=== PATIENT | male | born 1970 | race African-American/Black ===

== ENCOUNTER → 2017-06-22 | Outpatient (CLI) | payer OTHER | LOC: BICULT 12:49 | PROVIDERS: ATTEND Family Medicine | DX: H34.219 Partial retinal artery occlusion, unspecified eye (principal) | CPT/HCPCS: 93880 ==

== ENCOUNTER 2018-01-11 09:42 | Outpatient (CLI) | payer OTHER ==
--- NOTE | 2018-01-11 10:25 | ULT ---
RIGHT UPPER QUADRANT ULTRASOUND: Date: 01/11/18 HISTORY: Right upper quadrant abdominal pain. TECHNIQUE: Multiplanar Borrero scale and color Doppler images were obtained in a right upper quadrant abdominal ult rasound. FINDINGS: The liver demonstrates increased echogenicity without focal lesions or intrahepatic ductal dilatation . The gallbladder is normal without stones, sludge, gallbladder wall thickening, or pericholecystic f luid. The common bile duct is normal, measuring 4.0 mm. The pancreas could not be visualized. The rig ht kidney is normal in echogenicity without hydronephrosis or calculus and measures 11.2 cm in length . IMPRESSION: Fatty liver. POS: DAINA
== END 2018-01-11 09:43 | disposition home or self-care (01) ==
LOC: SCSULT 09:42
PROVIDERS: ATTEND Family Medicine
DX: R10.11 Right upper quadrant pain (principal); K76.0 Fatty (change of) liver, not elsewhere classified
CPT/HCPCS: 76705

== ENCOUNTER 2018-09-17 23:12 | Emergency (ER) | payer OTHER ==
[2018-09-17] MEDS ORDERED: Silver Nitrate Application 1 EACH ONE (23:29)
[2018-09-17] MEDS ORDERED: Adacel (T-DAP) 0.5 ML SYRINGE ONE (23:36)
== END 2018-09-18 00:10 | disposition home or self-care (01) ==
LOC: ERS 23:12
DX: S61.031A Puncture wound without foreign body of right thumb without damage to nail, initial encounter (principal); E11.9 Type 2 diabetes mellitus without complications; E78.5 Hyperlipidemia, unspecified; F31.9 Bipolar disorder, unspecified; F41.9 Anxiety disorder, unspecified; J45.909 Unspecified asthma, uncomplicated; I10 Essential (primary) hypertension; Z79.84 Long term (current) use of oral hypoglycemic drugs; Z79.899 Other long term (current) drug therapy; W22.8XXA Striking against or struck by other objects, initial encounter
CPT/HCPCS: 90471; 90715

== ENCOUNTER 2018-11-05 19:16 | Emergency (ER) | payer OTHER ==
[2018-11-05] MEDS ORDERED: Silver Nitrate Application 1 EACH ONE ×3 (19:55→20:10)
== END 2018-11-05 20:42 | disposition home or self-care (01) ==
LOC: ERS 19:16
DX: L98.0 Pyogenic granuloma (principal); E78.5 Hyperlipidemia, unspecified; J45.909 Unspecified asthma, uncomplicated; E11.9 Type 2 diabetes mellitus without complications; I10 Essential (primary) hypertension; Z79.899 Other long term (current) drug therapy; Z79.84 Long term (current) use of oral hypoglycemic drugs; Z79.51 Long term (current) use of inhaled steroids
CPT/HCPCS: 17250

== ENCOUNTER 2018-11-29 14:58 | Outpatient (CLI) | payer OTHER ==
[2018-11-29 15:58] LABS: #Basophils 0.1 thou/uL (0.0-0.2); #Eosinphils 0.5 thou/uL (0.0-0.7); #Lymphocytes 3.1 thou/uL (1.20-3.40); #Monocytes 0.5 thou/uL (0.11-0.59); #Neutrophils 3.6 thou/uL (1.40-6.50); %Basophils 0.9 % (0.0-1.0); %Eosinophils 6.5 % (0.0-10.0); %Lymphocytes 39.6 % (21.0-51.0); %Monocytes 6.7 % (0.0-10.0); %Neutrophils 46.4 % (42.0-75.0); Hemoglobin 14.2 g/dL (14.0-18.0); Mean Corpuscular HGB CONC 33.4 g/dL (32.0-36.0); Mean Corpuscular Hemoglobin 30.2 pg (27.0-31.0); Mean Corpuscular Volume 90.5 fL (78.0-98.0); Mean Platelet Volume 8.9 fL (7.4-10.4); Platelet Count 178 thou/uL (130-400); RBC Distribution Width 12.6 % (11.5-14.5); Red Blood Cell (RBC) Count 4.69 mill/uL (4.70-6.10); White Blood Cell (WBC) Count 7.8 thou/uL (4.8-10.8)
[2018-11-29 16:09] LABS: Bacteria/HPF None Seen HPF (None Seen); Bilirubin Negative (Negative); Blood, Urine Negative (Negative); Clarity Clear (Clear); Glucose, Urine (Dipstick) Greater than 1000 mg/dL (Negative); Leukocyte Negative Leu/uL (Negative); Nitrite Negative (Negative); Protein, Urine (Dipstick) 10 mg/dL (Neg-Trace); RBC/HPF 0-3 HPF (0-3); Squamous Epithelial 0-3 HPF (0-3); WBC/HPF 0-3 HPF (0-3)
[2018-11-29 16:17] LABS: Anion Gap 14 mmol/L (10-20); BUN (Urea Nitrogen) 9 mg/dL (8.9-20.6); Calc. Creatinine Clearance 0 mL/min (70-130); Calcium 9.5 mg/dL (7.8-10.44); Carbon Dioxide 27 mmol/L (22-29); Chloride 104 mmol/L (98-107); Estimated GFR-MDRD Greater than 90; Glucose 126 mg/dL (70-105); Potassium 3.8 mmol/L (3.5-5.1); Sodium 141 mmol/L (136-145)
--- NOTE | 2018-12-04 08:39 | EKG ---
Test Reason : Blood Pressure : / mmHG Vent. Rate : 061 BPM Atrial Rate : 061 BPM P-R Int : 174 ms QRS Dur : 078 ms QT Int : 426 ms P-R-T Axes : 039 031 021 degrees QTc Int : 428 ms Normal sinus rhythm Nonspecific T wave abnormality Abnormal ECG When compared with ECG of 23-FEB-2006 17:13, T wave amplitude has decreased in Anterior leads Confirmed by DR. Garrett ARELLANO ([id number]) on 12/04/2018 8:38:43 AM Referred By: SCAR Confirmed By:DR. Garrett ARELLANO
== END 2018-11-29 14:59 | disposition home or self-care (01) ==
LOC: LABBT 14:58
PROVIDERS: ATTEND Orthopaedic Surgery Hand Surgery
DX: Z01.818 Encounter for other preprocedural examination (principal); L98.0 Pyogenic granuloma
CPT/HCPCS: 80048; 81001; 85025; 93005; 93010

== ENCOUNTER 2018-12-01 12:52 | Day surgery (SDC) | payer OTHER ==
[2018-11-29 15:11] VITALS: BMI 37.8
[2018-12-01] MEDS ORDERED: ceFAZolin Sodium (SDC) 2 GM/100 ML BAG ONE (13:03)
[2018-12-01] MEDS ORDERED: Bacitracin Zinc Ointment 30 gm TUBE ONE (13:30)
[2018-12-01] MEDS ORDERED: Sodium Chloride 0.9% 10 ML ONE (13:30)
[2018-12-01] MEDS ORDERED: Fentanyl 100 MCG/2 ML VIAL ONE (13:43)
[2018-12-01] MEDS ORDERED: Ondansetron PF 4 MG/2 ML Vial ONE (15:37)
[2018-12-01] MEDS ORDERED: hydrALAZINE 20 MG/ML VIAL ONE (15:37)
[2018-12-01] MEDS ORDERED: Dexamethasone 20 MG/5 ML VIAL ONE (15:37)
[2018-12-01] MEDS ORDERED: Ketorolac Tromethamine 30 MG/ML VIAL ONE (15:37)
[2018-12-01] MEDS ORDERED: PROPOFOL 200 MG/20 ML VIAL ONE (15:37)
[2018-12-01] MEDS ORDERED: Lidocaine 1% PF 5 ML VIAL ONE (15:37)
--- NOTE | 2018-12-04 12:08 | OP ---
DATE OF PROCEDURE: 12/01/2018 PREOPERATIVE DIAGNOSIS: Right thumb 2.0 cm pyogenic granuloma with the distal tip of the stalk broke off the day prior to surgery. PROCEDURE PERFORMED: Excisional biopsy of 2.0 cm benign mass from the stalk, right thumb, consistent with pyogenic granuloma. SPECIMEN: 2.0 cm pyogenic granuloma. BLOOD LOSS: Less than 5 mL. TOURNIQUET TIME: Six minutes. INDICATION FOR PROCEDURE: Pyogenic granuloma, friable, there for over 3 months. DESCRIPTION OF PROCEDURE: After successful general endotracheal anesthesia, limb was prepped and draped. He had a total of 20 mL of 0.5% Marcaine block 10 given before surgery and 10 given after wound closure. With the limb exsanguinated, tourniquet inflated and time-out done appropriately, we identified the mass, ellipsed the mass out, but had to make a 5-mm distal and proximal incision. Using a [place] blade, we lifted out and its underlying tissue was not nailbed, so we felt comfortable in core tissue we removed. We then had the stalk as well, found it, removed it and now released the tourniquet, obtained hemostasis. The wound was closed after hemostasis was obtained with interrupted 5-0 nylon in simple pattern. Bulky dressing was applied with bacitracin, Adaptic, 4x4s, Kerlix, and a Coban. No complications. Job ID: [id number]
--- NOTE | 2018-12-05 06:41 | PQF ---
[facility] POST DISCHARGE CLINICAL DOCUMENTATION IMPROVEMENT CLARIFICATION FORM l Todays Date: 12/05/18 l Patients Name KORI SAMPSON l l Admit Date 12/01/18 l Disch Date 12/01/18 Carpenters Helper Name Alice Kwong Email: [email or web address] Cell: [phone] To be completed by Carpenters Helper: Present Clinical Indicators - Signs / Symptoms Results and Location in Medical Record [ ] Documentation of: [ ] [ ] Documentation of: [ ] [ ] Documentation of: [ ] [ ] Documentation of: [ ] [ ] Risks [ ] [ ] [ ] Treatment [ ] Excisional biopsy of pyogenic granuloma Query for size of margins of pyogenic granuloma [ ] [ ] To be completed by Physician: PANKAJ WALKER The documentation in this patients record requires clarification to ensure coding compliance and accuracy. Check the appropriate box and include in your discharge summary. [ ] [ ] [ ] [ ] Please check this box if this does not apply to this patient [ ] Unable to determine [ ] Other diagnosis: Review the following information and exercise your independent professional judgment in responding to the clarification. Based upon the clinical findings, risk factors, and treatment, please clarify if you are treating one of the above probable or suspected diagnoses. Physician Signature: Date Time MTDD
== END 2018-12-01 17:00 | disposition home or self-care (01) ==
LOC: SDC 12:52
PROVIDERS: ATTEND Orthopaedic Surgery Hand Surgery
PROC: 0JBJ0ZZ Excision of Right Hand Subcutaneous Tissue and Fascia, Open Approach (ICD-10-PCS; principal; 2018-12-01)
DX: L98.0 Pyogenic granuloma (principal); I10 Essential (primary) hypertension; E11.9 Type 2 diabetes mellitus without complications; E78.00 Pure hypercholesterolemia, unspecified; F32.9 Major depressive disorder, single episode, unspecified; M10.9 Gout, unspecified; Z79.4 Long term (current) use of insulin; Z79.82 Long term (current) use of aspirin; Z79.899 Other long term (current) drug therapy; Z88.8 Allergy status to other drugs, medicaments and biological substances
CPT/HCPCS: 36416; 88305; J0360; J0690; J1100; J1885; J2001; J2405; J2704; J3010; J3490

== ENCOUNTER 2019-01-27 20:30 | Outpatient (CLI) | payer OTHER | END 2019-01-27 20:31 | disposition home or self-care (01) | LOC: SLEEPLAB 20:30 | PROVIDERS: ATTEND Family Medicine | DX: G47.33 Obstructive sleep apnea (adult) (pediatric) (principal); R53.83 Other fatigue; R51 Headache; G31.84 Mild cognitive impairment of uncertain or unknown etiology; E66.9 Obesity, unspecified; K21.9 Gastro-esophageal reflux disease without esophagitis; I10 Essential (primary) hypertension; E11.9 Type 2 diabetes mellitus without complications; R06.83 Snoring; G47.61 Periodic limb movement disorder; Z68.37 Body mass index [BMI] 37.0-37.9, adult | CPT/HCPCS: 95811 ==

== ENCOUNTER 2019-04-23 07:23 | Day surgery (SDC) | payer OTHER ==
[2019-04-20 15:45] VITALS: BMI 38.0
[2019-04-23 07:58] LABS: #Basophils 0.1 thou/uL (0.0-0.2); #Eosinphils 0.5 thou/uL (0.0-0.7); #Lymphocytes 3.5 thou/uL (1.20-3.40); #Monocytes 0.6 thou/uL (0.11-0.59); #Neutrophils 4.1 thou/uL (1.40-6.50); %Basophils 0.9 % (0.0-1.0); %Eosinophils 5.4 % (0.0-10.0); %Lymphocytes 40.1 % (21.0-51.0); %Monocytes 6.5 % (0.0-10.0); %Neutrophils 47.1 % (42.0-75.0); Hemoglobin 14.4 g/dL (14.0-18.0); Mean Corpuscular Hemoglobin 30.2 pg (27.0-31.0); Mean Corpuscular Volume 91.5 fL (78.0-98.0); Mean Platelet Volume 8.5 fL (7.4-10.4); Platelet Count 161 thou/uL (130-400); RBC Distribution Width 12.4 % (11.5-14.5); Red Blood Cell (RBC) Count 4.76 mill/uL (4.70-6.10); White Blood Cell (WBC) Count 8.7 thou/uL (4.8-10.8)
[2019-04-23 08:04] LABS: INR-International Normal Ratio 0.9; PTT 27.9 SEC (22.9-36.1); Prothrombin Time 12.3 SEC (12.0-14.7)
[2019-04-23] MEDS ORDERED: Midazolam HCl 2 mg/2 ml Vial ONE (08:39)
[2019-04-23] MEDS ORDERED: Fentanyl 100 MCG/2 ML VIAL ONE (08:39)
[2019-04-23] MEDS ORDERED: Sodium Bicarbonate 2.5 MEQ/5 ML VIAL ONE (08:39)
[2019-04-23] MEDS ORDERED: Lidocaine 1% PF 5 ML VIAL ONE (08:39)
--- NOTE | 2019-04-23 09:38 | ULT ---
Hepatic biopsy random sonographic guided Conscious sedation: At least 20 minutes spent with the patient for conscious sedation. HISTORY: Abnormal liver function tests. FINDINGS: After explaining the procedure and answering all questions, sonographic survey shows a safe approach to left liver lobe. Sterile technique, buffered local anesthesia, sonographic guidance, conscious sedation, and a subxiphoid approach were used to carefully advance the tip of a 17-gauge tr ocar needle into the left liver lobe. Position was confirmed with sonography. A total of 2 18-gauge core specimens were obtained and submitted to pathology for evaluation. Needle was removed. No evidence of complication. Patient tolerated the procedure well and was returned in unchanged condition. IMPRESSION: Technically successful sonographic guided random hepatic biopsy. Pathology is pending.
[2019-04-23 09:40] VITALS: BP 139/79; TEMP 98
== END 2019-04-23 10:35 | disposition home or self-care (01) ==
LOC: ULT 07:23
PROVIDERS: ATTEND Internal Medicine Gastroenterology
PROC: 0FB23ZX Excision of Left Lobe Liver, Percutaneous Approach, Diagnostic (ICD-10-PCS; principal; 2019-04-23)
DX: K76.0 Fatty (change of) liver, not elsewhere classified (principal); E11.9 Type 2 diabetes mellitus without complications; G47.33 Obstructive sleep apnea (adult) (pediatric); F32.9 Major depressive disorder, single episode, unspecified; E66.9 Obesity, unspecified; K21.9 Gastro-esophageal reflux disease without esophagitis; F17.210 Nicotine dependence, cigarettes, uncomplicated; Z68.38 Body mass index [BMI] 38.0-38.9, adult; Z79.4 Long term (current) use of insulin; Z79.82 Long term (current) use of aspirin; Z79.899 Other long term (current) drug therapy; Z88.8 Allergy status to other drugs, medicaments and biological substances
CPT/HCPCS: 36415; 47000; 76942; 85025; 85610; 85730; 88307; 88313; J2001; J2250; J3010

== ENCOUNTER 2020-02-26 12:48 | Outpatient (CLI) | payer OTHER ==
--- NOTE | 2020-02-26 14:31 | RAD ---
EXAM: Chest 2 views: HISTORY: Preoperative radiograph COMPARISON: 06/24/2017 FINDINGS: There is a normal-sized cardiomediastinal silhouette. There is no evidence of consolidation, mass, or pleural effusion. No acute osseous abnormality. IMPRESSION: No evidence of acute cardiopulmonary disease
[2020-02-26 16:31] LABS: #Basophils 0.1 thou/uL (0.0-0.2); #Eosinphils 0.3 thou/uL (0.0-0.7); #Lymphocytes 2.2 thou/uL (1.20-3.40); #Monocytes 0.5 thou/uL (0.11-0.59); #Neutrophils 3.2 thou/uL (1.40-6.50); %Basophils 1.4 % (0.0-1.0); %Eosinophils 5.2 % (0.0-10.0); %Lymphocytes 34.6 % (21.0-51.0); %Monocytes 7.3 % (0.0-10.0); %Neutrophils 51.5 % (42.0-75.0); Hemoglobin 15.1 g/dL (14.0-18.0); Mean Corpuscular HGB CONC 32.7 g/dL (32.0-36.0); Mean Corpuscular Hemoglobin 30.3 pg (27.0-31.0); Mean Corpuscular Volume 92.7 fL (78.0-98.0); Mean Platelet Volume 9.8 fL (7.4-10.4); Platelet Count 162 thou/uL (130-400); Red Blood Cell (RBC) Count 4.98 mill/uL (4.70-6.10); White Blood Cell (WBC) Count 6.2 thou/uL (4.8-10.8)
[2020-02-26 16:57] LABS: ALT (SGPT) 31 U/L (8-55); AST (SGOT) 254 U/L (5-34); Albumin 4.5 g/dL (3.5-5.0); Alkaline Phosphatase 76 U/L (40-110); Anion Gap 13 mmol/L (10-20); BUN (Urea Nitrogen) 10 mg/dL (8.9-20.6); Bilirubin, Total 0.5 mg/dL (0.2-1.2); Calc. Creatinine Clearance 0 mL/min (70-130); Calcium 8.9 mg/dL (7.8-10.44); Carbon Dioxide 30 mmol/L (22-29); Chloride 105 mmol/L (98-107); Estimated GFR-MDRD 88; Globulin 3.7 g/dL (2.4-3.5); Glucose 120 mg/dL (70-105); Potassium 3.8 mmol/L (3.5-5.1); Protein, Total 8.2 g/dL (6.0-8.3); Sodium 144 mmol/L (136-145)
[2020-02-27 11:09] LABS: SARS-CoV-2 MS2 Positive; SARS-CoV-2 N Gene Negative; SARS-CoV-2 S Gene Negative; SARS-CoV-2 by NAA Not Detected (NotDetected); SARS-CoV-2 orf1ab Negative
--- NOTE | 2020-02-27 17:16 | EKG ---
Test Reason : Blood Pressure : / mmHG Vent. Rate : 071 BPM Atrial Rate : 071 BPM P-R Int : 178 ms QRS Dur : 074 ms QT Int : 430 ms P-R-T Axes : 047 031 -68 degrees QTc Int : 467 ms Normal sinus rhythm T wave abnormality, consider inferior ischemia T wave abnormality, consider anterolateral ischemia Prolonged QT Abnormal ECG No previous ECGs available Confirmed by GRACIA ANTHONY (2) on 02/27/2020 5:15:40 PM Referred By: JUAN C Confirmed By:GRACIA ANTHONY
== END 2020-02-26 12:49 | disposition home or self-care (01) ==
LOC: LABBT 12:48 → SCSRAD 12:49
PROVIDERS: ATTEND Internal Medicine Cardiovascular Disease
DX: Z01.818 Encounter for other preprocedural examination (principal); Z20.828 Contact with and (suspected) exposure to other viral communicable diseases; R07.9 Chest pain, unspecified
CPT/HCPCS: 71045; 80053; 85025; 87635; 93005; 93010; U0003

== ENCOUNTER 2020-02-29 06:20 | Day surgery (SDC) | payer OTHER ==
[2020-02-29] MEDS ORDERED: Lidocaine 1% (PF) 30 ML VIAL ONE (06:34)
[2020-02-29] MEDS ORDERED: Diazepam 5 MG TAB ONE (07:00)
[2020-02-29 07:52] LABS: Cardiac Risk 4.1 (Less than 4.5)
[2020-02-29] MEDS ORDERED: Midazolam HCl 2 mg/2 ml Vial ONE (08:04)
[2020-02-29] MEDS ORDERED: Nitroglycerin 4.9 GM Bottle ONE (08:08)
[2020-02-29] MEDS ORDERED: Nitroglycerin 2% Ointment 1 INCH/1 GM Packet ONE (08:10)
--- NOTE | 2020-02-29 13:10 | CON ---
DISCHARGE SUMMARY: HISTORY OF PRESENT ILLNESS: The patient is a 49-year-old gentleman who presented for cardiac evaluation. He denied to have any chest pain or dyspnea. He underwent a preoperative stress test which revealed evidence of anterior inferior ischemia with decreased left ventricular ejection fraction. HOSPITAL COURSE: On 02/29/2020, he underwent a cardiac catheterization. The patient was found to have an abnormal left ventricular ejection fraction, 50% to 55%. The LAD had a 20% proximal stenosis and 50% 1st diagonal lesion. The obtuse margin branch had a 40% lesion. The right coronary artery had a 50% proximal and a 50% mid stenosis. The patient was felt to have diffuse [id number] coronary artery disease. The patient will continue on medical therapy. DISCHARGE MEDICATIONS: 1. Felodipine 10 daily. 2. Aspirin 81 daily. 3. Metoprolol 100 XL b.i.d. 4. Metformin 500 b.i.d., which will be held. 5. Lipitor 40 daily. 6. Lexapro 20 daily. 7. Prozac one tablet daily. 8. Protonix 40 daily. 9. Jardiance 25 daily. Job ID: [id number] [facility]
[2020-02-29] MEDS ORDERED: Iopamidol 370 76% 100 ML VIAL ONE (14:53)
== END 2020-02-29 13:42 | disposition home or self-care (01) ==
LOC: CCL 06:20
PROVIDERS: ATTEND Internal Medicine Cardiovascular Disease
PROC: B2111ZZ Fluoroscopy of Multiple Coronary Arteries using Low Osmolar Contrast (ICD-10-PCS; principal; 2020-02-29)
PROC: 4A023N7 Measurement of Cardiac Sampling and Pressure, Left Heart, Percutaneous Approach (ICD-10-PCS; principal; 2020-02-29)
DX: I25.10 Atherosclerotic heart disease of native coronary artery without angina pectoris (principal); I10 Essential (primary) hypertension; E11.9 Type 2 diabetes mellitus without complications; G47.33 Obstructive sleep apnea (adult) (pediatric); E66.01 Morbid (severe) obesity due to excess calories; E05.90 Thyrotoxicosis, unspecified without thyrotoxic crisis or storm; F31.9 Bipolar disorder, unspecified; E78.5 Hyperlipidemia, unspecified; K76.0 Fatty (change of) liver, not elsewhere classified; I73.9 Peripheral vascular disease, unspecified; Z79.4 Long term (current) use of insulin; Z79.82 Long term (current) use of aspirin; Z79.899 Other long term (current) drug therapy; Z88.8 Allergy status to other drugs, medicaments and biological substances
CPT/HCPCS: 80061; 93458; 99152; J1644; J2001; J2250; Q9967